=== PATIENT | female | born 1940 ===

== ENCOUNTER → 2021-09-01 | Outpatient (CLI) | LOC: LABNPT 10:34 | PROVIDERS: ATTEND Family Medicine | DX: Z01.89 Encounter for other specified special examinations (principal) ==

== ENCOUNTER → 2021-09-01 | Outpatient (CLI) ==
[2021-09-03 10:12] LABS: BAND NEUTROPHILS 0 %; BASOPHILS % (MANUAL) 0 %; EOSINOPHILS % (MANUAL) 3 %; LYMPHOCYTES % (MANUAL) 41 %; MONOCYTES % (MANUAL) 11 %; NEUTROPHILS % (MANUAL) 45 %; RBC MORPH NORMAL
== END ==
LOC: GIR 10:30
PROVIDERS: ATTEND Family Medicine
DX: Z01.89 Encounter for other specified special examinations (principal)
CPT/HCPCS: 85007